=== PATIENT | male | born 1975 | race Caucasian/White ===

== ENCOUNTER 2020-01-12 10:06 | Outpatient (REF) | payer MEDICARE, MEDICAID, SELFPAY ==
[2020-01-12 14:23] LABS: MANUAL DIFF FLAG NO
[2020-01-12 14:32] LABS: Basophils Percent Auto 0.3 % (0-2); Eosinophils Absolute Auto 0.4 X10*3/uL (0.0-0.4); Eosinophils Percent Auto 5.7 % (0-4); Hematocrit 43.8 % (42-52); Hemoglobin 14.9 g/dl (14.0-18.0); Imm Gran Abs Auto 0.03 X10*3/uL (0.00-0.03); Imm Gran Pct Auto 0.4 % (0.0-0.4); Lymphocytes Absolute Auto 2.3 X10*3/uL (1.2-4.9); Lymphocytes Percent Auto 30.5 % (20-40); Mean Corpuscular Hemoglobin 29.4 pg (27.0-33.0); Mean Corpuscular Volume 86.4 fL (80-98); Monocytes Absolute Auto 0.6 X10*3/uL (0.1-1.2); Monocytes Percent Auto 7.4 % (2-11); Neutrophils Absolute Auto 4.1 X10*3/uL (2.0-8.3); Neutrophils Percent Auto 55.7 % (45-73); Platelet Count 203 X10*3/uL (160-400); Red Blood Count 5.07 X10*6/uL (4.60-5.80); Red Cell Distribution Width 12.7 % (11.0-16.0); White Blood Count 7.4 X10*3/uL (4.8-10.8)
[2020-01-12 15:18] LABS: Alanine Aminotransferase 28 U/L (0-40); Albumin Level 4.4 g/dL (3.5-5.0); Alkaline Phosphatase 67 U/L (39-117); Anion Gap 15 (12-20); Aspartate Amino Transferase 21 U/L (5-37); Bilirubin Total 0.7 mg/dL (0.0-1.0); Blood Urea Nitrogen 11 mg/dL (9-16); Calcium 8.6 mg/dL (8.4-10.2); Carbon Dioxide 27 mmol/L (22-29); Chloride 100 mmol/L (96-108); Cholesterol 203 mg/dL; Estimated Glomerular Filt Rate > 60; Glucose Fasting 73 mg/dL (60-99); HDL Cholesterol 35 mg/dL; LDL Cholesterol Calculated 119 mg/dl; Potassium 4.2 mmol/l (3.3-5.1); Sodium 138 mmol/L (135-145); Total Protein 7.4 g/dL (6.5-8.0); Triglycerides 245 mg/dL
[2020-01-12 15:27] LABS: Free T4 (Free Thyroxine) 1.23 ng/dL (0.71-1.85); Thyroid Stimulating Hormone 2.88 uIU/mL (0.32-4.0)
== END 2020-01-12 10:07 | disposition home or self-care (01) ==
LOC: HO.10HDL 10:06
PROVIDERS: Visit Provider Internal Medicine
DX: E78.00 Pure hypercholesterolemia, unspecified (principal); K21.9 Gastro-esophageal reflux disease without esophagitis; R94.6 Abnormal results of thyroid function studies
CPT/HCPCS: 36415; 80053; 80061; 84439; 84443; 85025

== ENCOUNTER 2020-06-21 13:38 | Outpatient (REF) | payer MEDICARE, MEDICAID, SELFPAY ==
[2020-06-21 14:08] LABS: MANUAL DIFF FLAG NO
[2020-06-21 14:12] LABS: Basophils Percent Auto 0.3 % (0-2); Eosinophils Absolute Auto 0.3 X10*3/uL (0.0-0.4); Eosinophils Percent Auto 3.2 % (0-4); Hematocrit 45.5 % (42-52); Hemoglobin 15.4 g/dl (14.0-18.0); Imm Gran Abs Auto 0.05 X10*3/uL (0.00-0.03); Imm Gran Pct Auto 0.5 % (0.0-0.4); Lymphocytes Absolute Auto 2.4 X10*3/uL (1.2-4.9); Lymphocytes Percent Auto 25.5 % (20-40); Mean Corpuscular HGB Conc 33.8 g/dl (31.0-36.0); Mean Corpuscular Hemoglobin 29.4 pg (27.0-33.0); Mean Platelet Volume 10.2 fL (9.4-12.4); Monocytes Absolute Auto 0.7 X10*3/uL (0.1-1.2); Monocytes Percent Auto 6.9 % (2-11); Neutrophils Absolute Auto 6.1 X10*3/uL (2.0-8.3); Neutrophils Percent Auto 63.6 % (45-73); Platelet Count 218 X10*3/uL (160-400); Red Blood Count 5.23 X10*6/uL (4.60-5.80); Red Cell Distribution Width 13.2 % (11.0-16.0); White Blood Count 9.5 X10*3/uL (4.8-10.8)
[2020-06-21 14:40] LABS: Alanine Aminotransferase 30 U/L (0-40); Albumin Level 4.6 g/dL (3.5-5.0); Alkaline Phosphatase 72 U/L (39-117); Anion Gap 14 (12-20); Aspartate Amino Transferase 24 U/L (5-37); Bilirubin Total 0.4 mg/dL (0.0-1.0); Blood Urea Nitrogen 11 mg/dL (9-16); Calcium 9.4 mg/dL (8.4-10.2); Carbon Dioxide 28 mmol/L (22-29); Chloride 101 mmol/L (96-108); Estimated Glomerular Filt Rate > 60; Glucose Random 103 mg/dL (60-115); Potassium 3.7 mmol/L (3.3-5.1); Sodium 139 mmol/L (135-145); Total Protein 7.7 g/dL (6.5-8.0)
== END 2020-06-21 13:39 | disposition home or self-care (01) ==
LOC: HO.LAB 13:38
PROVIDERS: PCP Internal Medicine; Visit Provider Internal Medicine
DX: K21.9 Gastro-esophageal reflux disease without esophagitis (principal); R50.9 Fever, unspecified
CPT/HCPCS: 36415; 80053; 85025

== ENCOUNTER 2021-12-02 10:32 | Outpatient (REF) | payer MEDICARE, MEDICAID, SELFPAY ==
[2021-12-02 13:42] LABS: MANUAL DIFF FLAG NO
[2021-12-02 13:56] LABS: Basophils Percent Auto 0.4 % (0-2); Eosinophils Absolute Auto 0.6 X10*3/uL (0.0-0.4); Eosinophils Percent Auto 7.7 % (0-4); Hematocrit 45.1 % (42.0-52.0); Hemoglobin 15.2 g/dl (14.0-18.0); Imm Gran Abs Auto 0.03 X10*3/uL (0.00-0.03); Imm Gran Pct Auto 0.4 % (0.0-0.4); Lymphocytes Absolute Auto 2.8 X10*3/uL (1.2-4.9); Lymphocytes Percent Auto 36.1 % (20-40); Mean Corpuscular HGB Conc 33.7 g/dl (31.0-36.0); Mean Corpuscular Hemoglobin 29.7 pg (27.0-33.0); Mean Corpuscular Volume 88.3 fL (80.0-98.0); Mean Platelet Volume 10.9 fL (9.4-12.4); Monocytes Absolute Auto 0.6 X10*3/uL (0.1-1.2); Monocytes Percent Auto 7.7 % (2-11); Neutrophils Absolute Auto 3.7 x10*3/uL (2.0-8.3); Neutrophils Percent Auto 47.7 % (45-73); Platelet Count 211 X10*3/uL (160-400); Red Blood Count 5.11 X10*6/uL (4.60-5.80); White Blood Count 7.7 X10*3/uL (4.8-10.8)
[2021-12-02 14:18] LABS: Alanine Aminotransferase 20 U/L (0-40); Albumin Level 4.4 g/dL (3.5-5.0); Alkaline Phosphatase 64 U/L (39-117); Anion Gap 16 (12-20); Aspartate Amino Transferase 18 U/L (5-37); Blood Urea Nitrogen 9 mg/dL (9-16); Calcium 9.6 mg/dL (8.4-10.2); Carbon Dioxide 28 mmol/L (22-29); Chloride 102 mmol/L (96-108); Cholesterol 226 mg/dL; Estimated Glomerular Filt Rate > 60; Glucose Fasting 87 mg/dL (60-99); HDL Cholesterol 41 mg/dL; LDL Cholesterol Calculated 148 mg/dl; Potassium 4.1 mmol/L (3.3-5.1); Sodium 142 mmol/L (135-145); Total Protein 7.1 g/dL (6.5-8.0); Triglycerides 186 mg/dL
== END 2021-12-02 10:33 | disposition home or self-care (01) ==
LOC: HO.10HDL 10:32
PROVIDERS: Visit Provider Internal Medicine
DX: Z00.00 Encounter for general adult medical examination without abnormal findings (principal)
CPT/HCPCS: 36415; 80053; 80061; 85025

== ENCOUNTER 2022-05-22 10:34 | Outpatient (REF) | payer MEDICARE, MEDICAID, SELFPAY ==
[2022-05-22 11:09] LABS: MANUAL DIFF FLAG NO
[2022-05-22 11:29] LABS: Basophils Percent Auto 0.4 % (0-2); Eosinophils Absolute Auto 0.4 X10*3/uL (0.0-0.4); Eosinophils Percent Auto 5.3 % (0-4); Hemoglobin 15.4 g/dl (14.0-18.0); Imm Gran Abs Auto 0.03 X10*3/uL (0.00-0.03); Imm Gran Pct Auto 0.4 % (0.0-0.4); Lymphocytes Absolute Auto 1.9 X10*3/uL (1.2-4.9); Lymphocytes Percent Auto 27.8 % (20-40); Mean Corpuscular HGB Conc 33.5 g/dl (31.0-36.0); Mean Corpuscular Hemoglobin 29.6 pg (27.0-33.0); Mean Corpuscular Volume 88.5 fL (80.0-98.0); Mean Platelet Volume 10.7 fL (9.4-12.4); Monocytes Absolute Auto 0.5 X10*3/uL (0.1-1.2); Monocytes Percent Auto 7.6 % (2-11); Neutrophils Percent Auto 58.5 % (45-73); Platelet Count 180 X10*3/uL (160-400); Red Cell Distribution Width 13.1 % (11.0-16.0); White Blood Count 6.8 X10*3/uL (4.8-10.8)
[2022-05-22 12:27] LABS: Alanine Aminotransferase 23 U/L (0-40); Albumin Level 4.4 g/dL (3.5-5.0); Alkaline Phosphatase 64 U/L (39-117); Anion Gap 11 (12-20); Aspartate Amino Transferase 16 U/L (5-37); Bilirubin Total 1.2 mg/dL (0.0-1.0); Blood Urea Nitrogen 12 mg/dL (9-16); Calcium 9.2 mg/dL (8.4-10.2); Carbon Dioxide 28 mmol/L (22-29); Chloride 104 mmol/L (96-108); Cholesterol 233 mg/dL; Estimated Glomerular Filt Rate > 60; Glucose Fasting 81 mg/dL (60-99); HDL Cholesterol 42 mg/dL; LDL Cholesterol Calculated 144 mg/dl; Potassium 4.3 mmol/L (3.3-5.1); Sodium 139 mmol/L (135-145); Total Protein 7.1 g/dL (6.5-8.0); Triglycerides 235 mg/dL
== END 2022-05-22 10:35 | disposition home or self-care (01) ==
LOC: HO.10HDL 10:34
PROVIDERS: Visit Provider Internal Medicine
DX: E78.00 Pure hypercholesterolemia, unspecified (principal); K21.9 Gastro-esophageal reflux disease without esophagitis
CPT/HCPCS: 36415; 80053; 80061; 85025

== ENCOUNTER 2022-11-27 10:03 | Outpatient (REF) | payer MEDICARE, MEDICAID, SELFPAY ==
[2022-11-27 12:51] LABS: Alanine Aminotransferase 25 U/L (0-40); Albumin Level 4.2 g/dL (3.5-5.0); Alkaline Phosphatase 59 U/L (39-117); Anion Gap 13 (12-20); Aspartate Amino Transferase 19 U/L (5-37); Bilirubin Total 0.6 mg/dL (0.0-1.0); Blood Urea Nitrogen 11 mg/dL (9-16); Calcium 9.6 mg/dL (8.4-10.2); Carbon Dioxide 29 mmol/L (22-29); Chloride 104 mmol/L (96-108); Cholesterol 217 mg/dL (<200); Estimated Glomerular Filt Rate > 60; Glucose Fasting 84 mg/dL (60-99); HDL Cholesterol 41 mg/dL (>40); LDL Cholesterol Calculated 122 mg/dL (<100); Potassium 4.1 mmol/L (3.3-5.1); Sodium 142 mmol/L (135-145); Total Protein 7.3 g/dL (6.5-8.0); Triglycerides 271 mg/dL (<150)
[2022-11-27 13:21] LABS: MANUAL DIFF FLAG NO
[2022-11-27 13:30] LABS: Basophils Percent Auto 0.5 % (0-2); Eosinophils Absolute Auto 0.6 X10*3/uL (0.0-0.4); Eosinophils Percent Auto 6.5 % (0-4); Hematocrit 45.4 % (42.0-52.0); Imm Gran Abs Auto 0.04 X10*3/uL (0.00-0.03); Imm Gran Pct Auto 0.5 % (0.0-0.4); Lymphocytes Absolute Auto 3.1 X10*3/uL (1.2-4.9); Lymphocytes Percent Auto 35.2 % (20-40); Mean Corpuscular Hemoglobin 29.9 pg (27.0-33.0); Mean Corpuscular Volume 90.4 fL (80.0-98.0); Mean Platelet Volume 10.6 fL (9.4-12.4); Monocytes Absolute Auto 0.6 X10*3/uL (0.1-1.2); Monocytes Percent Auto 6.7 % (2-11); Neutrophils Absolute Auto 4.4 x10*3/uL (2.0-8.3); Neutrophils Percent Auto 50.6 % (45-73); Platelet Count 210 X10*3/uL (160-400); Red Blood Count 5.02 X10*6/uL (4.60-5.80); Red Cell Distribution Width 13.1 % (11.0-16.0); White Blood Count 8.7 X10*3/uL (4.8-10.8)
== END 2022-11-27 10:04 | disposition home or self-care (01) ==
LOC: HO.10HDL 10:03
PROVIDERS: Visit Provider Internal Medicine
DX: E78.00 Pure hypercholesterolemia, unspecified (principal); K21.9 Gastro-esophageal reflux disease without esophagitis
CPT/HCPCS: 36415; 80053; 80061; 85025

== ENCOUNTER 2023-12-06 10:16 | Outpatient (REF) | payer MEDICARE, MEDICAID, SELFPAY ==
[2023-12-06 10:29] LABS: MANUAL DIFF FLAG NO
[2023-12-06 11:02] LABS: Basophils Percent Auto 0.4 % (0-2); Eosinophils Absolute Auto 0.9 X10*3/uL (0.0-0.4); Eosinophils Percent Auto 11.4 % (0-4); Hematocrit 43.1 % (42.0-52.0); Hemoglobin 14.5 g/dl (14.0-18.0); Imm Gran Abs Auto 0.04 X10*3/uL (0.00-0.03); Imm Gran Pct Auto 0.5 % (0.0-0.4); Lymphocytes Absolute Auto 2.7 X10*3/uL (1.2-4.9); Lymphocytes Percent Auto 35.7 % (20-40); Mean Corpuscular HGB Conc 33.6 g/dl (31.0-36.0); Mean Corpuscular Hemoglobin 29.9 pg (27.0-33.0); Mean Corpuscular Volume 88.9 fL (80.0-98.0); Mean Platelet Volume 10.2 fL (9.4-12.4); Monocytes Absolute Auto 0.6 X10*3/uL (0.1-1.2); Monocytes Percent Auto 7.7 % (2-11); Neutrophils Absolute Auto 3.4 x10*3/uL (2.0-8.3); Neutrophils Percent Auto 44.3 % (45-73); Platelet Count 192 X10*3/uL (160-400); Red Blood Count 4.85 X10*6/uL (4.60-5.80); White Blood Count 7.7 X10*3/uL (4.8-10.8)
[2023-12-06 11:32] LABS: Alanine Aminotransferase 23 U/L (0-40); Albumin Level 4.2 g/dL (3.5-5.0); Alkaline Phosphatase 66 U/L (39-117); Anion Gap 10 (12-20); Aspartate Amino Transferase 19 U/L (5-37); Bilirubin Total 0.7 mg/dL (0.0-1.0); Blood Urea Nitrogen 8 mg/dL (9-16); Calcium 9.7 mg/dL (8.4-10.2); Carbon Dioxide 28 mmol/L (22-29); Chloride 105 mmol/L (96-108); Cholesterol 216 mg/dL (<200); Estimated Glomerular Filt Rate > 60; Glucose Fasting 86 mg/dL (60-99); HDL Cholesterol 42 mg/dL (>40); LDL Cholesterol Calculated 143 mg/dL (<100); Potassium 3.8 mmol/L (3.3-5.1); Sodium 139 mmol/L (135-145); Total Protein 7.4 g/dL (6.5-8.0); Triglycerides 156 mg/dL (<150)
== END 2023-12-06 10:17 | disposition home or self-care (01) ==
LOC: HO.LAB 10:16
PROVIDERS: PCP Internal Medicine; Visit Provider Internal Medicine
DX: E78.5 Hyperlipidemia, unspecified (principal); K21.9 Gastro-esophageal reflux disease without esophagitis; R63.4 Abnormal weight loss
CPT/HCPCS: 36415; 80053; 80061; 85025

== ENCOUNTER 2024-05-09 11:41 | Outpatient (REF) | payer MEDICARE, MEDICAID, SELFPAY ==
[2024-05-09 12:09] LABS: Amphetamine Screen Urine Not Detected (Not Detect); Barbiturates, Urine Not Detected (Not Detect); Benzodiazepines Screen Urine Not Detected (Not Detect); Buprenorphine Scr Not Detected (Not Detect); Cannabinoid Screen Urine Not Detected (Not Detect); Cocaine Screen Urine Not Detected (Not Detect); Fentanyl, urine Not Detected (Not Detect); Methadone Screen, Urine Not Detected (Not Detect); Opiate Screen Urine Not Detected (Not Detect); Oxycodone Screen Urine Not Detected (Not Detect); Phencyclidine Screen Urine Not Detected (Not Detect)
--- OUTSIDE RECORDS SUMMARY | 2024-05-09 14:52 | XMS_ITS ---
Author Organization [facility] Address [address] [place] [address] Care Team Providers Care Hollock Maker Name Role Phone Scout Eng MD Primary Care Provider Unavaila Arnav Jacobs [phone] REASON FOR VISIT screening,gerd Encounters Encounter Location Date Provider Diagnosis [facility] [place] [address] [place], [place] [phone] 12/08/2023 Arnav Morfin PLAN OF TREATMENT No Information
--- OUTSIDE RECORDS SUMMARY | 2024-05-09 14:52 | XMS_ITS | Clinical Summary ---
Author Organization Unknown Care Team Providers Care Stitchdowns Toe Former Name Role Phone SUKHDEEP DEL VALLE, ROSIE Unavailable Unavailable ESME ELY, ADELE Unavailable Unavailable Payers Payer Name Policy Type Policy Number Effective Date Expira tion Date [place] [id number] ON DEMAND MEDICARE - [facility] BILLING - ABN [id number] Problems Condition Name Condition Details Condition Category Status Onset Date Resolution Date Last Treatment Date Treating Clinician Comments MAJOR DEPRESSIVE DISORDER, RECURRENT, UNSPECIFIED Active 03-08 00:00: 00 ASPERGER'S SYNDROME Active 03-08 00:00: 00 PROBLEMS RELATED TO LIVING ALONE Active 2018-03 00:00: 00 Allergies, Adverse Reactions, Alerts Allergy Name Allergy Type Status Severity Reaction(s) Onset Date Inactive Date Treating Clinician Comments NKA Propensity to adverse reactions Active 2022-05 10:50:0 2 Medications Ordered Medication Name Filled Medication Name Start Date Stop Date Current Medication? Ordering Clinician Indication Dosage Frequency Signature (SIG) Comments Components fluoxetine 20 mg capsule 04-04 00:00: 00 04-14 23:59 :00 No [id number] 1 capsule EVERY DAY 1 capsule EVERY DAY (route: oral) Alternate Route: BY MOUTH. Med Classific ation: Central Nervous System Agents fluoxetine 40 mg capsule 04-19 00:00: 00 Yes [id number] 1 capsule EVERY DAY 1 capsule EVERY DAY (route: oral) Alternate Route: BY MOUTH. Med Classific ation: Central Nervous System Agents hydroxyzine pamoate 25 mg capsule 04-04 00:00: 00 05-12 23:59 :00 No [id number] 1 capsule TWICE A DAY 1 capsule TWICE A DAY (route: oral) Alternate Route: BY MOUTH. Med Classific ation: Central Nervous System Agents Invega Trinza 546 mg/1.75 mL intramuscul ar syringe 04-10 00:00: 00 Yes [id number] 1.75 mL 1 SYRINGE INTRAMUSCU LARLY EVERY 1.75 mL 1 SYRINGE INTRAMUSCU LARLY EVERY (route: intramuscu lar) Med Classific ation: Central Nervous System Agents Latuda 60 mg tablet 206 00:00: 00 Yes [id number] 1 tablet EVERYDAY AT BEDTIME 1 tablet EVERYDAY AT BEDTIME (route: oral) Alternate Route: BY MOUTH. Med Classific ation: Central Nervous System Agents loratadine 10 mg tablet 04-12 00:00: 00 Yes [id number] 1 tablet ONCE A DAY 1 tablet ONCE A DAY (route: oral) Alternate Route: BY MOUTH. Med Classific ation: Respirato ry Therapy Agents omeprazole 20 mg capsule,del ayed release 04-04 00:00: 00 Yes [id number] 1 capsule EVERY DAY 1 capsule EVERY DAY (route: oral) Alternate Route: BY MOUTH. Med Classific ation: Gastroint estinal Therapy Agents hydroxyzine pamoate 25 mg capsule 05-13 00:00: 00 Yes [id number] 1 capsule 3 TIMES DAILY 1 capsule 3 TIMES DAILY (route: oral) Alternate Route: BY MOUTH. Med Classific ation: Central Nervous System Agents Plan of Treatment Planned Activity Planned Date Details Comments Future Scheduled Test SKILLED NU RSE TO EVALUATE PATIENT, IDENTIFY PRIMARY AND CO-MORBID CONDITIONS CODED PER CODING GUIDELINES, AND DEVELOP PATIENT SPECIFIC PLAN OF CARE THAT INCLUDES PATIENT GOAL FOR HOME HEALTH. [code = SKILLED NURSE TO EVALUATE PATIENT, IDENTIFY PRIMARY AND CO-MORBID CONDITIONS CODED PER CODING GUIDELINES, AND DEVELOP PATIENT SPECIFIC PLAN OF CARE THAT INCLUDES PATIENT GOAL FOR HOME HEALTH.] Future Scheduled Test PATIENT MA Y HAVE ONE SET OF EMERGENCY MEDICATION NOT TO BE PRE-POURED ANY SOONER THAN 24 HOURS BEFORE SEVERE INCLEMENT WEATHER OR EMERGENT EVENT AND FOLLOWING SKILLED NURSE EVALUATION OF PATIENT SAFETY. [code = PATIENT MAY HAVE ONE SET OF EMERGENCY MEDICATION NOT TO BE PRE-POURED ANY SOONER THAN 24 HOURS BEFORE SEVERE INCLEMENT WEATHER OR EMERGENT EVENT AND FOLLOWING SKILLED NURSE EVALUATION OF PATIENT SAFETY.] Future Scheduled Test SKILLED NU RSE TO O/A OF PATIENTS MENTAL/BEHAVIORAL STATUS, ASSESS VITAL SIGNS NEEDEDCOR REQUESTED, ALLOW 2 PRNS FOR MEDICATION MANAGEMENT. [code = SKILLED NURSE TO O/A OF PATIENTS MENTAL/BEHAVIORAL STATUS, ASSESS VITAL SIGNS NEEDEDCOR REQUESTED, ALLOW 2 PRNS FOR MEDICATION MANAGEMENT.] Future Scheduled Test SKILLED NU RSE FOR O/A OF NEUROCOGNITIVE AND BEHAVIORAL STATUS [code = SKILLED NURSE FOR O/A OF NEUROCOGNITIVE AND BEHAVIORAL STATUS] Future Scheduled Test SKILLED NU RSE MAY PICKUP AND TRANSPORT MEDICATIONS [code = SKILLED NURSE MAY PICKUP AND TRANSPORT MEDICATIONS] Future Scheduled Test SKILLED NU RSE FOR O/A OF GENERAL HEALTH STATUS OF PAIN, CARDIAC, RESPIRATORY, GASTROINTESTINAL, GENITOURINARY, SKIN, NEUROLOGIC, ENDOCRINE SYSTEMS TO IDENTIFY CHANGES ASSOCIATED WITH EXACERBATION FOR EARLY INTERVENTION OF COMPLICATIONS WEEKLY. [code = SKILLED NURSE FOR O/A OF GENERAL HEALTH STATUS OF PAIN, CARDIAC, RESPIRATORY, GASTROINTESTINAL, GENITOURINARY, SKIN, NEUROLOGIC, ENDOCRINE SYSTEMS TO IDENTIFY CHANGES ASSOCIATED WITH EXACERBATION FOR EARLY INTERVENTION OF COMPLICATIONS WEEKLY.] Future Scheduled Test SKILLED NU RSE TO ADMINISTER INVEGA TRINZA EVERY 3 MONTHS AND PRE-POUR MEDICATIONS WEEKLY PER MEDICATION LIST. [code = SKILLED NURSE TO ADMINISTER INVEGA TRINZA EVERY 3 MONTHS AND PRE-POUR MEDICATIONS WEEKLY PER MEDICATION LIST.] Future Scheduled Test SKILLED NU RSE FOR O/A AND SKILLED TEACHING RELATED TO MANAGEMENT OF DEPRESSIVE SYMPTOMS AND/OR DEPRESSION. SN TO REPORT SIGNIFICANT CHANGE IN DEPRESSIVE SYMPTOMS TO CLINICAL PROVIDER FOR EARLY INTERVENTION. [code = SKILLED NURSE FOR O/A AND SKILLED TEACHING RELATED TO MANAGEMENT OF DEPRESSIVE SYMPTOMS AND/OR DEPRESSION. SN TO REPORT SIGNIFICANT CHANGE IN DEPRESSIVE SYMPTOMS TO CLINICAL PROVIDER FOR EARLY INTERVENTION.] Future Scheduled Test SKILLED NU RSE FOR O/A OF CLIENT'S SOCIAL ISOLATION AND PROVIDE ASSISTANCE TO CLIENT IN DEVELOPMENT OF PLANNED ACTIVITIES [code = SKILLED NURSE FOR O/A OF CLIENT'S SOCIAL ISOLATION AND PROVIDE ASSISTANCE TO CLIENT IN DEVELOPMENT OF PLANNED ACTIVITIES] Future Scheduled Test SKILLED NU RSE TO ASSESS PATIENTS PSYCHOSOCIAL STATUS TO IDENTIFY POTENTIAL ISSUES THAT MAY COMPLICATE THE PROVISION OF THE PLAN OF CARE INCLUDING THE PATIENTS ABILITY TO ACCESS COMMUNITY RESOURCES AND PSYCHOSOCIAL SUPPORT SERVICES. [code = SKILLED NURSE TO ASSESS PATIENTS PSYCHOSOCIAL STATUS TO IDENTIFY POTENTIAL ISSUES THAT MAY COMPLICATE THE PROVISION OF THE PLAN OF CARE INCLUDING THE PATIENTS ABILITY TO ACCESS COMMUNITY RESOURCES AND PSYCHOSOCIAL SUPPORT SERVICES.] Future Scheduled Test SKILLED NU RSE WILL MAINTAIN SITUATIONAL AWARENESS FOR SAFETY AND WILL NOTIFY CLINICAL MUSIC ENGRAVER AND PHYSICIAN/PROVIDER WITH ANY CHANGE IN CONDITION. [code = SKILLED NURSE WILL MAINTAIN SITUATIONAL AWARENESS FOR SAFETY AND WILL NOTIFY CLINICAL MUSIC ENGRAVER AND PHYSICIAN/PROVIDER WITH ANY CHANGE IN CONDITION.] Goal 2022-07-08 Patient Goal - TO TAKE MY ME DS RIGHT Goal 2022-09-09 Patient Goal - TO TAKE MY ME DS RIGHT Goal 2022-11-05 Patient Goal - TO TAKE MY ME DS RIGHT Goal 2023-01-06 Patient Goal - TO TAKE MY ME DS RIGHT Goal 2023-03-04 Patient Goal - TO TAKE MY ME DS RIGHT Goal 2023-05-05 Patient Goal - TO TAKE MY ME DS RIGHT Goal 2023-07-06 Patient Goal - TO TAKE MY ME DS RIGHT Goal 2023-09-02 Patient Goal - TO TAKE MY ME DS RIGHT Goal 2023-11-03 Patient Goal - TO TAKE MY ME DS RIGHT Goal 2023-12-29 Patient Goal - TO TAKE MY ME DS RIGHT Goal 2024-03-02 Patient Goal - TO TAKE MY ME DS RIGHT Goal 2024-04-27 Patient Goal - TO TAKE MY ME DS RIGHT Goal Patient Goal - TO TAKE MY ME DS RIGHT Goal Provider Goal - A PLAN OF CARE WILL BE ESTABLISHED THAT MEETS PATIENT'S INTERMEDIATE NEEDS AND INCLUDES PATIENT GOAL FOR HOME HEALTH. Goal Provider Goal - MEDICATION WILL BE AVAILABLE DURING INCLEMENT WEATHER OR EMERGENT EVENT THROUGHOUT CERTIFICATION PERIOD. Goal Provider Goal - ALTERED MENTAL/BEHAVIORAL STATUS WILL BE IDENTIFIED PROMPTLY AND INTERVENTION INITIATED QUICKLY TO MINIMIZE ASSOCIATED RISKS THROUGHOUT CERTIFICATION PERIOD. Goal Provider Goal - PATIENT WILL BE ABLE TO PERFORM DAILY FUNCTIONS AND MAINTAIN OPTIMAL BEHAVIORAL/NEUROCOGNITIVE STATUS THROUGHOUT CERTIFICATION PERIOD. Goal Provider Goal - SKILLED NURSE PICKED UP AND TRANSPORTED MEDICATIONS FOR SAFETY. Goal Provider Goal - CHANGE IN GENERAL HEALTH STATUS WILL BE IDENTIFIED AND REPORTED TO PHYSICIAN FOR PROMPT INTERVENTION TO MINIMIZE ASSOCIATED RISKS THROUGHOUT CERTIFICATION PERIOD. Goal Provider Goal - PATIENT WILL COMPLY WITH MEDICATION WHEN SKILLED NURSE ADMINISTERS AND PRE-POURS MEDICATION THROUGHOUT CERTIFICATION PERIOD. Goal Provider Goal - PATIENT WILL REMAIN SAFE WITHOUT DECOMPENSATION IN DEPRESSIVE CONDITION, WHILE MAINTAINING OPTIMAL LEVEL OF MENTAL HEALTH AND WELL BEING THROUGHOUT CERTIFICATION PERIOD. Goal Provider Goal - PATIENT WILL DEMONSTRATE AN INCREASED INTEREST IN SOCIALIZATION AND ACTIVITIES BY THE END OF THE CERTIFICATION PERIOD. Goal Provider Goal - PSYCHOSOCIAL NEEDS WILL BE IDENTIFIED AND PLAN IMPLEMENTED TO MINIMIZE RISK THROUGHOUT CERTIFICATION PERIOD. Goal Provider Goal - PATIENT WILL REMAIN SAFE IN THE COMMUNITY AND WILL BE FREE OF DANGER TO SELF AND OTHERS THROUGHOUT THE CERTIFICATION PERIOD. Progress Notes Progress Notes <paragraph>[Visit Date: 2024 by ADELE VICTORIA RN]:</paragraph><paragraph>PEYTON IS DOING WELL IN HIS NEW APARTMENT AND NEW ROOMATES. INVEGA TRINZA NOT DELIVERED BECAUSE HE LOST HIS PHONE. ALL MEDS TAKEN APPROPRIATELY, SOME STUTTERING NOTICED. NO NEW ISSUES.</paragraph> Encounters Start Date/Time End Date/Time Encounter Type Admission Type Attending [facility] Facility Care Department Encounter ID Discharge Date Discharge Status Discharge Condition Discharge Reason Percent Goals Met 2022-05-13 00:00:00 2024-06-30 00:00:00 Outpatient RECERTIFIC ADELE BRADSHAW [facility] [id number] 4.00
--- OUTSIDE RECORDS SUMMARY | 2024-05-09 14:52 | XMS_ITS | Clinical Summary ---
Author Organization Unknown Care Team Providers Care Filter Screen Cleaner Name Role Phone SUKHDEEP DEL VALLE, ROSIE Unavailable Unavailable ESME ELY, ADELE Unavailable Unavailable Payers Payer Name Policy Type Policy Number Effective Date Expira tion Date [place] [id number] ON DEMAND MEDICARE - [facility] BILLING - ABN [id number] Problems Condition Name Condition Details Condition Category [...] 04-04 00:00: 00 04-14 23:59 :00 No [id number] 1 capsule EVERY DAY 1 capsule EVERY DAY (route: oral) Alternate Route: BY MOUTH. Med Classific ation: Central Nervous System Agents fluoxetine 40 mg capsule 04-19 00:00: 00 Yes [id number] 1 capsule EVERY DAY 1 capsule EVERY DAY (route: oral) Alternate Route: BY MOUTH. Med Classific ation: Central Nervous System Agents hydroxyzine pamoate 25 mg capsule 04-04 00:00: 00 05-12 23:59 :00 No [id number] 1 capsule TWICE A DAY 1 capsule TWICE A DAY (route: oral) Alternate Route: BY MOUTH. Med Classific ation: Central Nervous System Agents Invega Trinza 546 mg/1.75 mL intramuscul ar syringe 04-10 00:00: 00 Yes [id number] 1.75 mL 1 SYRINGE INTRAMUSCU LARLY EVERY 1.75 mL 1 SYRINGE INTRAMUSCU LARLY EVERY (route: intramuscu lar) Med Classific ation: Central Nervous System Agents Latuda 60 mg tablet 206 00:00: 00 Yes [id number] 1 tablet EVERYDAY AT BEDTIME 1 tablet EVERYDAY AT BEDTIME (route: oral) Alternate Route: BY MOUTH. Med Classific ation: Central Nervous System Agents loratadine 10 mg tablet 04-12 00:00: 00 Yes [id number] 1 tablet ONCE A DAY 1 tablet ONCE A DAY (route: oral) Alternate Route: BY MOUTH. Med Classific ation: Respirato ry Therapy Agents omeprazole 20 mg capsule,del ayed release 04-04 00:00: 00 Yes [id number] 1 capsule EVERY DAY 1 capsule EVERY DAY (route: oral) Alternate Route: BY MOUTH. Med Classific ation: Gastroint estinal Therapy Agents hydroxyzine pamoate 25 mg capsule 05-13 00:00: 00 Yes [id number] 1 capsule 3 TIMES DAILY 1 capsule [...] AWARENESS FOR SAFETY AND WILL NOTIFY CLINICAL ROOFER METAL AND PHYSICIAN/PROVIDER WITH ANY CHANGE IN CONDITION. [code = SKILLED NURSE WILL MAINTAIN SITUATIONAL AWARENESS FOR SAFETY AND WILL NOTIFY CLINICAL ROOFER METAL AND PHYSICIAN/PROVIDER WITH ANY CHANGE IN CONDITION.] [...] CARE WILL BE ESTABLISHED THAT MEETS PATIENT'S PENITENTIARY NEEDS AND INCLUDES PATIENT GOAL FOR HOME [...] End Date/Time Encounter Type Admission Type Attending [facility] Facility Care Department Encounter ID Discharge Date Discharge Status Discharge Condition Discharge Reason Percent Goals Met 2022-05-13 00:00:00 2024-06-30 00:00:00 Outpatient RECERTIFIC ADELE BRADSHAW [facility] [id number] 4.00
--- OUTSIDE RECORDS SUMMARY | 2024-05-09 14:52 | XMS_ITS | Patient Health Record ---
Author Organization [facility] Address [address] [place] [address] Care Team Providers Care Psychologist Military Personnel Name Role Phone Scout Eng MD Primary Care Provider Arnav Nelson Unavailable [phone] ALLERGIES No Known Allergies REASON FOR REFERRAL No Information MEDICATIONS Medication SIG (Take, Route, Frequency, Duration) Notes Start Date End Date Status Lurasidone HCl 60 MG Oral for 30 Active Invega Trinza 546 MG/1.75ML Intramuscular for 90 Active Loratadine 10 MG TAKE 1 TABLET BY VAZQUEZ TH EVERY DAY Oral for 90 Active Omeprazole 20 MG Oral for 90 A ctive FLUoxetine HCl 40 MG Oral for 90 Active MiraLax (colon prep) 17 GM/SCOOP 1 238Gm bottle mixed with Gatorade or Crystal Light Orally begin at 5:00 p.m. the day before the procedure for 1 day 08/25/2023 Active Dulcolax (colon prep) 5 MG take at 3:00 p.m and 7:00p.m. Orally two tablets twice a day for one day for 1 day 08/25/2023 Active IMMUNIZATIONS Vaccine Route Administration Date Status Comme nts Influenza Unknown 12/29/2022 Administered SOCIAL HISTORY Tobacco Use: Social History Observation Description Date Details (start date - stop date) Never Smoker NA - NA Sex Assigned At : Social History Observation Description Sex Assigned At Unknown Tobacco Use/Smoking Question Answer Notes Patient is a nonsmoker Alcohol Screen Question Answer Notes Did you have a drink contain ing alcohol in the past year? Yes How often did you have a dri nk containing alcohol in the past year? Monthly or less (1 point) How many drinks did you have on a typical day when you were drinking in the past year? 1 or 2 drinks (0 point) How often did you have 6 or more drinks on one occasion in the past year? Never (0 point) Points 1 Interpretation Negative PROBLEMS Problem Type ICD Code Onset Dates Problem Status W/U Status Risk SNOMED Code Notes Problem Colon cancer screening (Z12.11) Active confirmed Colon cancer screening (996686659) Problem Chronic GERD (K21.9) Active confirmed Gastroesophagea l reflux disease (960532734) VITAL SIGNS Temperature 98.6 degrees Fahrenheit 08/24/2023 Blood pressure diastolic 00 mm Hg 08/24/2023 Height 5 ft 8 in in 08/24/2023 Blood pressure systolic 000 mm Hg 08/24/2023 Weight 198 lb 8 oz lbs 08/24/2023 BMI 30.18 kg/m2 08/24/2023 Encounters Encounter Location Date Provider Diagnosis [facility] [address] [place] [id number] 12/08/2023 Arnav Morfin [facility] [address] [place], [place] [id number] 03/29/2024 Arnav Morfin [facility] [address] [place] [phone] 08/24/2023 Arnav Morfin Colon cancer screening Z12.11 and Chronic GERD K21.9 [facility] [address] [place] [phone] 08/24/2023 Arnav Morfin [facility] [address] [place] [phone] 04/02/2024 Arnav Morfin ASSESSMENTS Encounter Date Diagnosis Assessment Notes Treatment Notes Treatment Clinical Notes 08/24/2023 Colon cancer screening (ICD-10 - Z12.11) 08/24/2023 Chronic GERD (ICD-10 - K21.9) PLAN OF TREATMENT Future Test Test Name Order Date UPPER GI ENDOSCOPY 08/24/2023 COLONOSCOPY 08/24/2023 Insurance Providers Payer Name Payer Address Payer Phone Subscriber Number Group Number Insured Name Patient Relationship to Insured Coverage Start Date Coverage End Date [place] OF [place] [address] [place] [id number] JOANA MORRELL Self - patient is the insured MEDICAID OF [facility] [address] [place] [address] [phone] [id number] JOANA MORRELL Self - patient is the insured MEDICAL (GENERAL) HISTORY Medical History History ICD Code Depression/Anxiety GERD Denies NE,DM,CVA,Lung disease,renal dise ase Surgical History Surgery Date(Month/Year)
--- OUTSIDE RECORDS SUMMARY | 2024-05-09 14:52 | XMS_ITS ---
Author Organization [facility] Address [address] [place] [address] Care Team Providers Care Charge Master Specialist Name Role Phone Scout Eng MD Primary Care Provider Unavaila Arnav Jacobs [phone] REASON FOR VISIT screening,gerd Encounters Encounter Location Date Provider Diagnosis [facility] [place] [address] [place], [place] [phone] 03/29/2024 Arnav Morifn PLAN OF TREATMENT No Information
--- OUTSIDE RECORDS SUMMARY | 2024-05-09 14:52 | XMS_ITS ---
Author Organization [facility] Address [address] [place] [address] Care Team Providers Care Animal Control Supervisor Name Role Phone Scout Eng MD Primary Care Provider Unavaila Arnav Jacobs [phone] Encounters Encounter Location Date Provider Diagnosis [facility] [address] [place] [address] 04/02/2024 Arnav Morfin PLAN OF TREATMENT No Information
== END 2024-05-09 11:42 | disposition home or self-care (01) ==
LOC: HO.LNP 11:41
DX: Z79.899 Other long term (current) drug therapy (principal)
CPT/HCPCS: 80307

== ENCOUNTER 2024-09-27 13:35 | Outpatient (AMB) | payer MEDICARE, MEDICAID, SELFPAY ==
--- OUTSIDE RECORDS SUMMARY | 2024-03-29 04:30 | XMS_ITS ---
Author Organization [facility] Address [address] [place] [address] Care Team Providers Care Cotton Ginner Name Role Phone Velasquez (RETIRED) Scout DEL VALLE Primary Care Provide Arnav Mccracken [phone] REASON FOR VISIT screening,gerd Encounters Encounter Location Date Provider Diagnosis [facility] [address] [place] [phone] 03/29/2024 Arnav Morfin Plan Of Treatment No Information Progress Notes * JOANA MORRELLDOB: [birth year] (49 yo M)Acc No.[id number]:03/29/2024 EGD and COL/MAC Patient: JOANA RUSSELL Provider: Cliff Morfin MD :1975 A ge:48 Y S ex:Male Date:03/29/2024 Address:[address] [place], [place] [id number] Pcp:Scout Eng (RETIRED )MD Subjective: * Chief Complaints: * 1 . Screening,gerd. * Medical History: Objective: * Vitals: Assessment: Plan: * Treatment: * * The named appointment provid er may or may not be the originator of this progress note, and it is not deemed complete until electronically signed by the appointment provider. Sign off status: Pending * Provider: Cliff Morfin MD Date: 0 03/29/2024 Generated for Printi ng/Faxing/eTransmitting on: 0 09/27/2024 02:10 PM EDT
[2024-09-27 13:33] VITALS: BP 120/72; PULSE 71; TEMP 36.8; O2SAT 99; BMI 30.9
--- NOTE | 2024-09-27 13:33 | A.OFFPC_ITS ---
Vital Signs 09/27/24 13:33 Height 5 ft 8 in Weight 203 lb BMI 30.9 BP 120/72 Blood Pressure Location Rt brachial Position Sitting Pulse 71 Pulse Source Pulse Oximeter Temp 98.3 F Temp Source Axillary Pulse Oximetry (%) 99 Oxygen Delivery Method Room Air Intake Visit Reasons: Croke/ Routine - see comments Scrubber System Attendant Required: No Accompanied by: Self / Same As Patient Allergies No Known Allergies Allergy (Verified 09/27/24 14:05) Medication List - Last Reconciled 09/27/24 by Gato Early MD fluoxetine 40 mg PO DAILY loratadine 10 mg PO DAILY lurasidone 60 mg PO QPM omeprazole 20 mg PO DAILY paliperidone palm (3 month) (Invega Trinza) mg IM Tobacco use date assessed: 09/27/24 Dental Screening Dental Screen Date: 09/27/24 Did you have a dental visit in the last 12 months?: No Did you have a dental problem in the last 6 months where you did not have access to dental care?: No PFSH Medical History GERD (gastroesophageal reflux disease) Anxiety Depression Surgical History No pertinent past surgical history Family History Mother No problems noted. Father No problems noted. Social History Housing: Apartment Patient Tobacco Use Status: Never used Tobacco e-Cigarette/Vaping Use: Never Used service: No Current occupational status: unemployed Cognitive needs: No Hearing needs: No Vision needs: No Questionnaire PHQ-9 Over the last 2 weeks, how often have you been bothered by any of the following problems? 1. Little interest or pleasure in doing things: not at all 2. Feeling down, depressed, or hopeless: not at all 3. Trouble falling or staying asleep, or sleeping too much: not at all 4. Feeling tired or having little energy: not at all 5. Poor appetite or overeating: not at all 6. Feeling bad about yourself - or that you are a failure or have let yourself or your family down: not at all 7. Trouble concentrating on things, such as reading the newspaper or watching television: not at all 8. Moving or speaking so slowly that other people could have noticed. Or the opposite - being so fidgety or restless that you have been moving around a lot more than usual: not at all 9. Thoughts that you would be better off or of hurting yourself in some way: not at all Total score: 0 Source: Developed by Drs. Arnav Gracia, Darlene Tan, Mihir Sierra and colleagues, with an educational angelic from [employer]. Thrive Questionnaire Date Thrive assessed: 09/27/24 I am a: Patient Within the past 12 months, did the food you bought not last and you didn't have the money to get more?: Never true Within the past 12 months, did you worry whether your food would run out before you got money to buy more?: Never true Do you have trouble paying for medicines?: No Do you have trouble getting transportation to medical appointments?: No Do you have trouble paying your heating and electricity bill?: No Do you have trouble taking care of your child, family member or friend?: No Do you have trouble with day-to-day activities such as bathing, preparing meals, shopping, managing finances, etc.?: No Are you currently unemployed and looking for a job?: No Are you interested in more education?: No THRIVE Score: 0 AUDIT C Alcohol Use Questionnaire (AUDIT-C) 1. How often do you have a drink containing alcohol?: Monthly or less 2. How many drinks containing alcohol do you have on a typical day when you are drinking?: 1 or 2 3. How often do you have six or more drinks on one occasion?: Less than monthly Total Score: 2 SCOTT-7 AMB Questionnaire SCOTT-7 Date SCOTT - 7 assessed: 09/27/24 Feeling nervous, anxious, or on edge: 0 = Not at all Not being able to stop or control worryin = Not at all Worrying too much about different things: 0 = Not at all Trouble relaxin = Not at all Being so restless that it is hard to sit still: 0 = Not at all Becoming easily annoyed or irritable: 0 = Not at all Feeling afraid as if something awful might happen: 0 = Not at all Total SCOTT-7 score (0-4 normal; 5-9 mild; 10-14 moderate; 15-21 severe): 0 Source: Developed by Drs. Arnav Gracia, Darlene Tan, Mihir Sierra and colleagues, with an educational angelic from [employer]. Physical exam (Primary Care) Vital Signs: Last Vital Signs Temp 98.3 F 09/27/24 13:33 Pulse 71 09/27/24 13:33 BP 120/72 09/27/24 13:33 Pulse Ox 99 09/27/24 13:33 Oxygen Delivery Method Room Air 09/27/24 13:33 BMI result Body Mass Index 30.9 Tobacco/Smoking Status: Tobacco use Status Tobacco use date assessed 09/27/24 09/27/24 13:35 Patient Tobacco Use Status Never used Tobacco 09/27/24 13:35 e-Cigarette/Vaping Use Never Used 09/27/24 13:44 PHQ-9: PHQ-9 Score PHQ-9: Total score 0 09/27/24 13:35 Thrive Assessment: Date of Thrive Assessment Date Thrive assessed 09/27/24 09/27/24 13:35 Coding Level of Care Code New Pt Level 4 (90718) Complex EM visit Add On G2211 Diagnoses Depression F32.A Assessment & Plan Assessment & Plan (1) Depression: Code(s): F32.A - Depression, unspecified Category: Medical Plan: Patient sees [facility] [place] health issues, to continue meds at the suggested doses Plan History of Present Illness - The patient is a 49-year-old male presenting for a follow-up on hypercholesterolemia and medication refills. - Hypercholesterolemia: The patient has a history of elevated cholesterol levels, previously managed by Dr. Murillo, who suggested medication if levels remained high. - Gastroesophageal Reflux Disease (GERD): The patient takes omeprazole for GERD and requires a refill. - Seasonal Allergies: The patient takes loratadine for seasonal allergies and requires a refill. - Psychiatric Care: The patient is under the care of a mental health professional at an outpatient clinic on [facility]. - Social Support: The patient lives with a roommate and receives assistance from a worker from [facility] [place]. Social History - Housing: The patient lives with a roommate. - Support: Receives assistance from a worker from [facility] [place]. - Activity: Engages in walking when weather permits. Review of Systems - General: Reports feeling okay. - Psychiatric: Reports regular visits to a mental health professional. Physical Exam General: Cooperative and healthy appearing Nutritional Appearance: Well nourished Orientation/consciousness: Patient oriented x3 Limitations: No limitations Head: Normal to inspection General: Appearance normal, both eyes and all related structures Neck: Normal visual inspection Chest: Normal palpation of entire chest wall Respiratory: N ormal respiratory effort Neurology: Patient oriented x3, lives with a roommate, can administer own pills, does not cook much, spends time helping friends and walking when weather permits. Results Plan 1. Hypercholesterolemia - Plan to draw blood for cholesterol levels and consider medication if levels remain high. 2. Gastroesophageal Reflux Disease (Gerd) - Refill prescription for omeprazole. 3. Seasonal Allergies - Refill prescription for loratadine. Discussion Notes I discussed with the patient the need to monitor cholesterol levels and the potential initiation of medication if levels remain elevated. We also addressed the need for refills on omeprazole for GERD and loratadine for seasonal allergies. Follow-up was scheduled for six months. Patient Instructions - Get blood work done for cholesterol levels. - Continue taking omeprazole and loratadine as prescribed. - Schedule a follow-up appointment in six months. Orders: Orders Basic Metabolic Panel Today F32.A - Depression, unspecified Complete Blood Count no Diff Today F32.A - Depression, unspecified Liver Panel Today F32.A - Depression, unspecified Thyroid Stimulating Hormone Today F32.A - Depression, unspecified UA and rflx microscopic Today F32.A - Depression, unspecified Lipid Panel Today F32.A - Depression, unspecified Medications: New loratadine 10 mg PO DAILY 90 tabs 1RF omeprazole 20 mg PO DAILY 90 caps 1RF
== END 2024-09-27 14:08 | disposition home or self-care (01) ==
LOC: HO.HMCHD 13:36
PROVIDERS: PCP Internal Medicine; Visit Provider Internal Medicine
DX: F32.A Depression, unspecified (principal)

== ENCOUNTER → 2024-09-27 13:35 | Outpatient (BNVA) | payer MEDICARE, MEDICAID, SELFPAY | PROVIDERS: PCP Internal Medicine; Visit Provider Internal Medicine | DX: F32.A Depression, unspecified (principal) | CPT/HCPCS: 99202 ==